=== PATIENT | female | born 1975 | race Caucasian/White ===

== ENCOUNTER 2018-03-02 15:19 | Day surgery (SDC) | payer BC ==
[~2018-03-02 15:19] MED LIST: Buffered Lidocaine 0.9% SYRIN* 5 ML/SYR SYRINGE INTRADERM ONE; Bupivacaine 0.5%* 50 ML VIAL ONE; Dexamethasone IV* 4 MG/ML 1 ML (4 MG) IV SLOW PU ONE; Dexamethasone IV* 4 MG/ML 1 ML (4 MG) ONE; Famotidine IV* 10 MG/ML 2 ML (20 mg) IV ONE; Famotidine IV* 10 MG/ML 2 ML (20 mg) ONE; Lidocain 1% EPI 1:100,000 * 30 ML MDV ONE; ceFAZolin 2 GM PREMIX (*) 2 GM/50 ML BAG IVPB ONE
[2018-03-02] MEDS ORDERED: Scopolamine 1.5 mg* PATCH TRANSDERM ONE (16:25)
[2018-03-02] MEDS ORDERED: Scopolamine 1.5 mg* PATCH ONE (16:28)
[2018-03-02] MEDS ORDERED: fentaNYL* 50 MCG/ML 2 ML VIAL (100 MCG VIAL) ONE ×2 (16:29→17:00)
[2018-03-02] MEDS ORDERED: Midazolam* 1 MG/ML 2 ML VIAL (2 MG) ONE (16:29)
[2018-03-02] MEDS ORDERED: Dexamethasone IV* 4 MG/ML 1 ML (4 MG) ONE (16:59)
[2018-03-02] MEDS ORDERED: Propofol* 10 MG/ML 20 ML BTL IV PUSH ONE (16:59)
[2018-03-02] MEDS ORDERED: Lidocaine 2% PF * 5 ML VIAL ONE (16:59)
[2018-03-02] MEDS ORDERED: Ondansetron INJ* 2 MG/ML VIAL ONE (16:59)
[2018-03-02] MEDS ORDERED: Naloxone* 0.4 MG/ML 1 ML VIAL IV PRN (17:15)
[2018-03-02] MEDS ORDERED: Acetaminophen TAB* 325 MG PO PRN (17:15)
[2018-03-02] MEDS ORDERED: DiMENhydriNATE IV* 50 MG/ML VIAL IV PUSH PRN (17:15)
[2018-03-02] MEDS ORDERED: PROCHLORPERAZINE INJ 5 MG/ML 2 ML VIAL IV PRN (17:15)
[2018-03-02] MEDS ORDERED: fentaNYL* 50 MCG/ML 2 ML VIAL (100 MCG VIAL) IV PRN (17:15)
[2018-03-02] MEDS ORDERED: oxyCODONE/Acetamin 5/325 MG* TAB PO PRN (17:15)
[2018-03-02] MEDS ORDERED: oxyCODONE/Acetamin 5/325 MG* TAB ONE (17:34)
[2018-03-02 18:06] VITALS: BP 130/72
--- NOTE | 2018-03-03 00:57 | OP ---
CC: PCP, Usha Sullivan MD * DATE OF OPERATION: 03/02/18 - [facility] DATE OF : 77 SURGEON: Nasim Negrete MD CASING IN LINE FEEDER: None available. PRE-OP DIAGNOSIS: Right knee fusion with suspected medial meniscus tear. POST-OP DIAGNOSIS: Right knee chondromalacia of the patella with lateral meniscus tearing at the roots and fraying of the body and a medial plica. OPERATIVE PROCEDURE: 1. Right knee arthroscopy with partial lateral meniscectomy. 2. Chondroplasty of the patella. 3. Medial plica excision. COMPLICATIONS: None. ESTIMATED BLOOD LOSS: Minimal. INDICATIONS: Luzma Pompa is 42-year-old female who has had persistent knee pain, after an injury while working out on 10/30/17. She has had significant swelling and pain. She has tried antiinflammatories and injection and physical therapy. She states the knee has locked on her. After extensive discussion of risks and benefits of the surgical versus nonoperative treatment, she has elected to proceed with surgical treatment. The risks and benefits include but are not limited to bleeding, infection, damage to nerves, vessels, surrounding structures, wound nonhealing, persistent pain, need for further surgery, scarring, stiffness, incomplete relief of symptoms, risks of anesthesia and risk of DVT. She has a family history of DVT, therefore we will place her on Lovenox postoperatively. DESCRIPTION OF PROCEDURE: The patient was greeted in the preoperative area by the attending surgeon. Correct extremity was marked. The patient was brought back to the operative suite and she was placed in supine position on the operating table. She then underwent general anesthesia with LMA intubation after which an unsterile tourniquet was placed high on the proximal thigh. The lateral post was positioned. The right leg was then prepped and draped in the usual sterile fashion beginning with chlorhexidine soap, scrub and alcohol wipe and a final prep with ChloraPrep. After appropriate surgical pause indicating site, side, procedure and administration of antibiotics, the knee was intra-articularly injected with 1% lidocaine with epi. The anterolateral incision was then made with 11-blade. Scope was introduced to the joint, joint was examined. There was only 2 small areas in the weightbearing zone of chondrosis that was grade 1 or 2 of the medial compartment. Remainder of the medial femoral condyle had grade 0 to 1 changes. Medial plateau had grade 0 to 1 changes. Medial meniscus was intact. There was a large plica medially based that was rubbing against the medial femoral condyle. The scope was positioned in suprapatellar pouch and there was grade 2 changes to the center of the patella with unstable flaps. There were small loose bodies folding around but they were all less than 5 mm. The medial lateral gutter had some of these loose bodies, which were then lavaged. The scope was brought back to the notch and the ACL and PCL were intact. There was abundant synovitis medially based, this was removed and the anterior medial portal was made. The shaver was used to debride back the plica and synovium medially. After this, a chondroplasty was done of the patellar joint. The meniscus was then probed again, medial meniscus was intact. There was no evidence of tearing. The knee was placed in [id number] position. There was unstable flap tearing of the posterior root. The flap was then removed using the shaver and the fraying of the body of the meniscus was also removed using biters and yimi. This allowed stable layers. Remainder of the root was intact. The lateral plateau had fissuring and grade 1 changes. Lateral femoral condyle had grade 0 to 1 changes. At this point, because of the synovectomy medially, the electrocautery device was used to maintain hemostasis and ensure that the remainder of the plica was removed. Final images were obtained. The knee was thoroughly lavaged. The wounds were copiously irrigated with sterile saline. The portals were closed with 0 nylon. The knee was intra-articularly injected with 0.25% Marcaine plain. Sterile dressings were applied as well as the Cryo/Cuff and the patient was transferred to PACU in stable condition. POSTOPERATIVE PLAN: She will be weightbearing as tolerated with crutches for the first 3 to 5 days. Range of motion as tolerated. Discharge on pain medications with Lovenox due to a family history of DVT. I will see the patient back in 10 to 14 days. [id number] #: [id number] COREY
[2018-03-05] MEDS ORDERED: Scopolamine PATCH Remove* 1 NOTE MISC PATCH OFF ONE (16:26)
== END 2018-03-02 18:10 | disposition home or self-care (01) ==
LOC: OREAST 15:19
PROVIDERS: ATTEND Orthopaedic Surgery
DX: S83.281A Other tear of lateral meniscus, current injury, right knee, initial encounter (principal); M67.51 Plica syndrome, right knee; M22.41 Chondromalacia patellae, right knee; J45.909 Unspecified asthma, uncomplicated; E66.9 Obesity, unspecified; X50.0XXA Overexertion from strenuous movement or load, initial encounter; Y93.79 Activity, other specified sports and athletics; Y92.9 Unspecified place or not applicable
CPT/HCPCS: 81025; 88304; A9270-GY; J0690; J1100; J2250; J2405; J2704; J3010